=== PATIENT | female | born 1990 | race Caucasian/White ===

== ENCOUNTER 2017-05-23 19:44 | Emergency (ER) | payer SELFPAY ==
[~2017-05-23] VITALS: Ht 160 cm; Wt 52.5 kg
[2017-05-23 19:47] VITALS: Ht 160 cm; Wt 52.5 kg
== END 2017-05-24 03:49 | disposition left against medical advice (07) ==
LOC: FTE 19:44
DX: Z53.21 Procedure and treatment not carried out due to patient leaving prior to being seen by health care provider (principal)